=== PATIENT | female | born 1975 | race African-American/Black ===

== ENCOUNTER 2017-07-16 14:25 | Emergency (ER) | payer OTHER ==
[~2017-07-16] VITALS: Ht 160 cm; Wt 79.0 kg
[2017-07-16] MEDS ORDERED: KETOROLAC 60MG/2ML VIAL IM ONE (15:30)
[2017-07-16 16:03] VITALS: BP 115/72
== END 2017-07-16 16:05 | disposition home or self-care (01) ==
LOC: ER 15:05
DX: S20.219A Contusion of unspecified front wall of thorax, initial encounter (principal); F17.200 Nicotine dependence, unspecified, uncomplicated; Z98.890 Other specified postprocedural states; Y08.89XA Assault by other specified means, initial encounter; Y93.89 Activity, other specified; Y92.89 Other specified places as the place of occurrence of the external cause; Y99.8 Other external cause status; Z91.013 Allergy to seafood
CPT/HCPCS: 71045; 81025; 96372; 99283; J1885

== ENCOUNTER 2017-10-04 09:57 | Emergency (ER) | payer OTHER ==
[~2017-10-04] VITALS: Ht 162.6 cm; Wt 61.0 kg
[2017-10-04] MEDS ORDERED: HYDROCODONE/ACETAMINOPHEN 5/325MG TABLET PO ONE (10:45)
[2017-10-04] MEDS ORDERED: ONDANSETRON 4MG ODT PO ONE (10:45)
[2017-10-04] MEDS ORDERED: MORPHINE SULFATE 10 MG/ML CPJ IV ONE (12:30)
[2017-10-04 13:37] VITALS: BP 111/71
== END 2017-10-04 13:41 | disposition home or self-care (01) ==
LOC: ER 10:54
DX: S20.20XA Contusion of thorax, unspecified, initial encounter (principal); M25.531 Pain in right wrist; Z98.890 Other specified postprocedural states; Z91.013 Allergy to seafood; Y00.XXXA Assault by blunt object, initial encounter; Y93.89 Activity, other specified; Y92.018 Other place in single-family (private) house as the place of occurrence of the external cause
CPT/HCPCS: 71045; 71110; 96374; 99284; J2270; Q0162

== ENCOUNTER 2019-02-24 09:11 | Emergency (ER) | payer OTHER ==
[~2019-02-24] VITALS: Ht 162.6 cm; Wt 68.0 kg
[2019-02-24] MEDS ORDERED: ASPIRIN 81MG TABLET PO ONE (10:45)
[2019-02-24] MEDS ORDERED: NITROGLYCERIN 0.4MG TABLET SL SL PRN (10:45)
[2019-02-24 12:01] LABS: CLARITY URINE CLEAR (CLEAR); COLOR URINE YELLOW (YELLOW); KETONES URINE NEGATIVE (NEGATIVE); LEUKOCYTE ESTERASE URINE 1+ (NEGATIVE); NITRITE URINE NEGATIVE (NEGATIVE); OCCULT BLOOD URINE NEGATIVE (NEGATIVE); PH URINE 6.5 (4.5-8.0); PROTEIN URINE NEGATIVE (NEGATIVE); SPECIFIC GRAVITY URINE 1.012 (1.005-1.030); UROBILINOGEN URINE 0.2 E.U./dL (0.2-1.0)
[2019-02-24 12:04] LABS: BASOPHILS % 1.2 % (0.0-2.0); EOSINOPHILS % 3.5 % (0.0-5.0); HEMATOCRIT. 35.4 % (36.0-48.0); HEMOGLOBIN. 11.6 g/dL (12.0-16.0); LYMPHOCYTES % 28.8 % (20.0-50.0); MEAN CORPUSCULAR VOLUME 85.5 fL (81.0-99.0); MEAN PLATELET VOLUME 9.8 fl (7.4-10.4); MONOCYTES % 9.7 % (2.0-8.0); NEUTROPHILS % 56.8 % (40.0-76.0); PLATELET 179 x1000/uL (130-400); RED BLOOD CELL COUNT 4.14 mill/uL (4.2-5.4); RED CELL DISTRIBUTION WIDTH 16.6 % (11.6-14.6)
[2019-02-24 12:13] LABS: HCG SCREEN NEGATIVE
[2019-02-24 12:14] LABS: CHLORIDE 110 mEq/L (98-107)
[2019-02-24 12:15] LABS: D-DIMER 0.62 mg/L FEU (<0.50); PARTIAL THROMBOPLASTIN TIME 24.3 sec (23.4-31.0); PROTHROMBIN TIME 10.3 sec (9.6-11.0)
[2019-02-24 12:19] LABS: ETHANOL BLOOD < 10 mg/dL
[2019-02-24 12:45] LABS: *BARBITURATES SCREEN URINE NEGATIVE (NEGATIVE); *BENZODIAZEPINES SCREEN URINE NEGATIVE (NEGATIVE); OPIATES URINE SCREEN NEGATIVE (NEGATIVE); PHENCYCLIDINE URINE SCREEN NEGATIVE (NEGATIVE)
[2019-02-24 12:46] LABS: *AMPHETAMINES SCREEN URINE NEGATIVE (NEGATIVE); *COCAINE SCREEN URINE NEGATIVE (NEGATIVE)
[2019-02-24] MEDS ORDERED: SODIUM CHLORIDE 0.9% 1,000 ML IV ONE (12:49)
[2019-02-24 12:50] LABS: METHADONE URINE SCREEN NEGATIVE (NEGATIVE)
[2019-02-24 13:07] LABS: CANNABINOID URINE SCREEN PRESUMTIVE POSITIVE (NEGATIVE)
[2019-02-24 13:40] VITALS: BP 100/59
== END 2019-02-24 13:55 | disposition left against medical advice (07) ==
LOC: ER 09:11
DX: R07.89 Other chest pain (principal); R05 Cough; A59.9 Trichomoniasis, unspecified; Z98.890 Other specified postprocedural states; Z98.51 Tubal ligation status; Z88.6 Allergy status to analgesic agent
CPT/HCPCS: 36415; 71045; 80053; 80305; 80320; 81003; 81025; 83690; 83880; 84484; 84703; 85025; 85379; 85610; 85730; 93005; 99284; J7030; Z7610; G0480

== ENCOUNTER 2024-02-07 20:57 | Emergency (ER) | payer MEDICAID, OTHER ==
[~2024-02-07] VITALS: Ht 160 cm; Wt 72.0 kg
[2024-02-07 21:02] VITALS: O2SAT 100
[2024-02-07 21:40] LABS: BASOPHILS % 0.6 % (0.0-2.0); EOSINOPHILS % 2.4 % (0.0-5.0); HEMATOCRIT. 34.8 % (36.0-48.0); HEMOGLOBIN. 11.1 g/dL (12.0-16.0); LYMPHOCYTES % 42.9 % (20.0-50.0); MEAN CORPUSCULAR HEMOGLOBIN 27.3 pg (28.0-32.0); MEAN CORPUSCULAR HGB CONC 31.8 g/dL (31.0-37.0); MEAN CORPUSCULAR VOLUME 85.9 fL (81.0-99.0); MEAN PLATELET VOLUME 8.1 fl (7.4-10.4); MONOCYTES % 10.6 % (2.0-8.0); NEUTROPHILS % 43.5 % (40.0-76.0); PLATELET 188 x1000/uL (130-400); RED BLOOD CELL COUNT 4.05 mill/uL (4.2-5.4); RED CELL DISTRIBUTION WIDTH 16.4 % (11.6-14.6); WHITE BLOOD COUNT 5.7 x1000/uL (4.5-11.0)
[2024-02-07 21:47] LABS: CHLORIDE 109 mEq/L (98-107); POTASSIUM 3.5 mEq/L (3.5-5.1); SODIUM 142 mEq/L (136-145)
[2024-02-07 21:48] LABS: CARBON DIOXIDE 28 mEq/L (21-32)
[2024-02-07 21:49] LABS: CALCIUM 9.1 mg/dL (8.7-10.4)
[2024-02-07 21:53] LABS: GLUCOSE 89 mg/dL (70-105); UREA NITROGEN BLOOD 10 mg/dL (9-23)
[2024-02-07 22:14] LABS: TROPONIN I HIGH SENSITIVITY < 4 ng/L (3.0-34)
[2024-02-07] MEDS ORDERED: ACET-2708 MT (23:21)
[2024-02-07 23:25] VITALS: BP 109/59; PULSE 62; RESP 16; TEMP 36.78072; O2SAT 100
== END 2024-02-07 23:29 | disposition home or self-care (01) ==
LOC: ER 20:57
DX: M79.10 Myalgia, unspecified site (principal); R06.02 Shortness of breath; Z98.890 Other specified postprocedural states; Z98.51 Tubal ligation status
CPT/HCPCS: 36415; 71045; 80048; 84484; 85025; 93005; 99285

== ENCOUNTER 2024-12-13 08:30 | Emergency (ER) | payer MEDICAID ==
[~2024-12-13] VITALS: Ht 160 cm; Wt 72.0 kg
[~2024-12-13 08:30] MED LIST: ACET-2708 MT
[2024-12-13 08:36] VITALS: O2SAT 99
[2024-12-13 09:41] LABS: BASOPHILS % 0.6 % (0.0-2.0); EOSINOPHILS % 1.8 % (0.0-5.0); HEMATOCRIT. 33.7 % (36.0-48.0); HEMOGLOBIN. 10.8 g/dL (12.0-16.0); LYMPHOCYTES % 30.3 % (20.0-50.0); MEAN PLATELET VOLUME 8.4 fl (7.4-10.4); MONOCYTES % 8.3 % (2.0-8.0); NEUTROPHILS % 59.0 % (40.0-76.0); PLATELET 212 x1000/uL (130-400); RED BLOOD CELL COUNT 3.95 mill/uL (4.2-5.4); RED CELL DISTRIBUTION WIDTH 18.4 % (11.6-14.6)
[2024-12-13 10:05] VITALS: TEMP 37.1; O2SAT 99
[2024-12-13 10:05] LABS: CREATININE 0.8 mg/dL (0.6-1.0); TROPONIN I HIGH SENSITIVITY < 4 ng/L (3.0-34); UREA NITROGEN BLOOD 8 mg/dL (9-23)
[2024-12-13 10:31] VITALS: BP 114/67; PULSE 60; RESP 18; TEMP 98.78
[2024-12-13 11:57] LABS: TROPONIN I HIGH SENSITIVITY < 4 ng/L (3.0-34)
[2024-12-13] MEDS ORDERED: MORPHINE SULFATE 4 MG/ML INJ (FOR IV/IM USE) IV ONE (12:15)
== END 2024-12-13 12:20 | disposition home or self-care (01) ==
LOC: ER 08:30 → EDBEDREQTM 12:08 → EDBEDREQ 12:08 → ER 12:20 → CMPBEDREQ 12-14 07:54
DX: R07.89 Other chest pain (principal); Z98.890 Other specified postprocedural states; Z98.51 Tubal ligation status
CPT/HCPCS: 80048; 85025; 84484; 36415; 71045; 93005; 99285; Z7610 ×2; A6449; A4606